=== PATIENT | female | born 1990 | race Hispanic/Latino ===

== ENCOUNTER 2017-09-04 01:01 | Emergency (ER) | payer BC, OTHER | END 2017-09-04 02:14 | disposition home or self-care (01) | LOC: EDH 01:01 | DX: M54.5 Low back pain (principal); Z98.890 Other specified postprocedural states ==

== ENCOUNTER 2021-01-30 12:27 | Emergency (ER) | payer OTHER ==
[~2021-01-30] VITALS: Ht 160 cm; Wt 68.9 kg
[2021-01-30] MEDS ORDERED: ONDANSETRON 4MG INJ IVP ONE (13:00)
[2021-01-30] MEDS ORDERED: 0.9%NACL 1000ML 1,000 ML IV SCH (13:00)
[2021-01-30] MEDS ORDERED: MORPHINE 2 MG SYG IVP ONE (13:00)
[2021-01-30 13:11] LABS: BASOPHILS % (AUTO) 0.4 % (0.0-5.0); EOSINOPHILS % (AUTO) 1.3 % (0.0-8.0); HEMATOCRIT 31.2 % (36-48); LYMPHOCYTES % (AUTO) 17.7 % (21.0-51.0); MEAN CORPUSCULAR HGB CONC 28.2 g/dL (32.0-36.0); MEAN CORPUSCULAR VOLUME 74.5 fL (79-99); NEUTROPHILS % (AUTO) 73.4 % (40.0-77.0); PLATELET COUNT (AUTO) 297 K/uL (130-400); RED BLOOD CELL COUNT(AUTO) 4.19 MIL/uL (4.00-5.50); RED CELL DISTRIBUTION WIDTH 16.9 % (11.0-15.5); WHITE BLOOD COUNT (AUTO) 8.9 K/uL (4.8-10.8)
[2021-01-30 13:26] LABS: ALBUMIN 3.6 g/dL (3.5-5.0); BILIRUBIN,TOTAL 0.5 mg/dL (0.2-1.0); CREATININE 0.6 mg/dL (0.5-1.5); POTASSIUM 3.5 mmol/L (3.5-5.1); TOTAL PROTEIN, SERUM 8.4 g/dL (6.0-8.3)
[2021-01-30 13:44] VITALS: BP 118/70
[2021-01-30] MEDS ORDERED: IOHEXOL-350 75 ML VIAL IV ONE (14:32)
[2021-01-30] MEDS ORDERED: CEFTRIAXONE 1G VIAL IVP ONE (16:30)
[2021-01-30] MEDS ORDERED: KETOROLAC 30MG VIAL (30MG/ML) IV ONE (16:30)
[2021-01-30] MEDS ORDERED: DOXY-336 PO (16:46)
[2021-01-30] MEDS ORDERED: KETO10 PO (16:46)
== END 2021-01-30 17:21 | disposition home or self-care (01) ==
LOC: EDH 12:27
DX: N73.9 Female pelvic inflammatory disease, unspecified (principal); D25.9 Leiomyoma of uterus, unspecified; Z20.822 Contact with and (suspected) exposure to COVID-19; Z79.1 Long term (current) use of non-steroidal anti-inflammatories (NSAID)
CPT/HCPCS: 36415; 71045; 72193; 74176; 76856; 80053; 81025; 83690; 85025; 87486; 87635; 87797; 96361; 96374; 96375; 99285; C9803; J0696; J1885; J2405; J7030; Q9967